=== PATIENT | male | born 1955 | race Caucasian/White ===

== ENCOUNTER 2024-07-06 08:21 | Day surgery (SDC) | payer MEDICARE, OTHER, SELFPAY ==
[2024-07-06] VITALS (7 sets, daily range): BP systolic 103–140; BP diastolic 77–84; PULSE 43–98; RESP 16; TEMP 36.2–36.5; O2SAT 95–99; BMI 24.7
--- NOTE | 2024-07-06 08:40 | PRE.ANES_ITS ---
ASA Classification* ASA Classification ASA Classification: 2 Assessment & Plan Anesthesia* Anesthesia Assessment Anesthesia Assessment: Discussed sedation and/or anesthesia options, risks, benefits, and alternatives with patient/parents/legal guardian/POA. Questions invited. The patient/parents/legal guardian/POA seems to understand and agrees to proceed with anesthesia plan. Reviewed the physical assessment, medical history, allergy history and patient home medications list prior to surgery/procedure/anesthetic and documented any changes. Performed airway and anesthesia risk assessments. 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 When Was Last Pacemaker Check QUESTION #4 FULL TEXT: You/Your Family Experience fever (hyperthermia) with Anesthesia Last Oral Intake Last Oral intake: Last Oral Intake NPO since Meds taken in AM with sips of water? Meds patient instructed to take am of surgery PONV PONV - pneumatic hoist operator: PONV - pneumatic hoist operator Female No 07/04/24 10:16 HX of Motion Sickness Yes 07/04/24 10:16 HX of N/V After Surgery No 07/04/24 10:16 Non-Smoker Yes 07/04/24 10:16 Duration of Surgery greater No 07/04/24 10:16 than 60 minutes Number of Risk Factors 2 07/04/24 10:16 PONV Score Moderate Risk 07/04/24 10:16 Height & Weight Height & Weight: Anesthesia: Height & Weight Height 5 ft 10 in 06/07/24 08:44 Respiratory Assessment Respiratory Assessment - pneumatic hoist operator: Respiratory Tract Infection Hx - pneumatic hoist operator Hx Respiratory Tract Infection No 07/04/24 10:16 STOP Sleep Apnea STOP Sleep Apnea - pneumatic hoist operator: STOP Sleep Apnea - pneumatic hoist operator Hx Hypertension No 07/04/24 10:16 Hx Sleep Apnea No 07/04/24 10:16 CPAP BIPAP Do you snore loudly (louder No 07/04/24 10:16 than talking or can be heard Do you often feel tired/ Yes 07/04/24 10:16 fatigued/ sleepy during daytime? Has anyone observed you stop No 07/04/24 10:16 breathing during sleep? STOP Results Negative 07/04/24 10:16 QUESTION #5 FULL TEXT : Do you snore loudly (louder than talking or can be heard through closed doors)? 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 Specify any problems Hx of Preganancy in last 3 N/A 07/04/24 10:16 Months Nurse Filling Out Transfusion DSCHRIBER 07/04/24 10:16 & Questions: Date: 07/04/24 07/04/24 10:16 Time: 10:17 07/04/24 10:16 Patient unable to answer at this time (ie. confused, unrespo /Reproduction History /Reproductive History - pneumatic hoist operator: /Reproductive Hx- pneumatic hoist operator Hx Now No 07/04/24 10:16 Gestational Age (in weeks): EDC: Hx Hx Para Hx Section SAB No 07/04/24 10:16 Active Medications Active Medications: Current Medications Generic Name Dose Route Start Last Admin Trade Name Freq PRN Reason Stop Dose Admin Lactated Ringer's 1,000 mls @ 15 mls/hr 07/06/24 08:45 IV .Q48H BARBARA PFSH Medical History Wears glasses Depression Arthritis Hepatitis Back pain Loss of consciousness Injury of head and neck Difficulty swallowing Non-smoker History of pain when walking History of stress test Encounter for screening for COVID-19 Home Medications ?Medication ?Instructions ?Recorded ?Last Taken ?Type loratadine 10 mg tablet 10 mg PO DAILY PRN allergy symptoms 07/04/24 Unknown History (Allerclear) Allergy/AdvReac Type Severity Reaction Status Date / Time acetaminophen (From Vicodin) AdvReac Drives me Verified 07/04/24 10:15 crazy hydrocodone (From Vicodin) AdvReac Drives me Verified 07/04/24 10:15 crazy Surgical History Hx of esophagogastroduodenoscopy Hx of knee surgery History of right hip replacement History of replacement of both shoulder joints History of total bilateral knee replacement Social History household members: spouse current occupational status: retired Smoking Status: Never smoker substance use type: does not use Review of Systems (Anesthesia) ROS Narrative System reviewed and no additional complaints, except as documented.
[2024-07-06] MEDS: Lactated Ringers 1,000 ML 15 ML IV (08:54)
--- NOTE | 2024-07-06 09:28 | HP.PCM_ITS ---
[facility] - General General Date of Admission: 07/06/24 Date of Service: 07/06/24 Chief Complaint: Screening colonoscopy [facility] Narrative YOVANA NOONAN, is a 69 M who presents today for screening colonoscopy. He has never had a colonoscopy the past. He is not having abdominal pain, cramping, diarrhea. He does not take any medicines on a daily basis. Overall is in very good health. [facility] Medical History Wears glasses Depression Arthritis Hepatitis Back pain Loss of consciousness Injury of head and neck Difficulty swallowing Non-smoker History of pain when walking History of stress test Encounter for screening for COVID-19 Home Medications ?Medication ?Instructions ?Recorded ?Last Taken ?Type loratadine 10 mg tablet 10 mg PO DAILY PRN allergy symptoms 07/04/24 07/03/24 History (Allerclear) Allergy/AdvReac Type Severity Reaction Status Date / Time hydrocodone (From Vicodin) AdvReac Drives me Verified 07/04/24 10:15 crazy Surgical History Hx of esophagogastroduodenoscopy Hx of knee surgery History of right hip replacement History of replacement of both shoulder joints History of total bilateral knee replacement Social History household members: spouse current occupational status: retired Smoking Status: Never smoker substance use type: does not use ROS Review of Systems ROS Unobtainable: other Constitutional Constitutional: Denies fatigue, fever(s), poor appetite, weight gain or weight loss ENT HEENT: Denies mouth lesions Cardiovascular Cardiovascular: Denies abdominal bloating, abdominal edema or abdominal pain Respiratory/Chest Respiratory/Chest: Denies change in mental status, change in phlegm color, chest congestion or chest tightness Gastrointestinal Gastrointestinal: Denies belching, bloating, change in bowel habits, change in stool character, chewing difficulty, coffee ground emesis, constipation, cramping, diarrhea, dyspepsia, dysphagia, early satiety, excessive flatus, fecal incontinence, heartburn, hematemesis, hematochezia, hemorrhoids, loose stools, melena, nausea, odynophagia, rectal bleeding, tenesmus, vomiting or weight changes Genitourinary Genitourinary: Denies abdominal discomfort, burning urination or itching Musculoskeletal Musculoskeletal: Reports as per HPI; Denies muscle weakness or myalgias Integumentary Integumentary: Denies jaundice Neurologic Neurologic: Denies lack of coordination or weakness Psychiatric Psychiatric: Denies confusion, depression, memory loss, mood swings, paranoia or suicidal ideation Endocrine Endocrinology: Denies systems reviewed and no addt'l complaints, except as documented Hematologic/Lymphatic Hematologic/Lymphatic: Denies anemia, easy bleeding, easy bruising or lymphadenopathy Allergic/Immunologic Allergic/Immunologic: Denies systems reviewed and no addt'l complaints, except as documented Vital Signs Vital Signs Vital Signs: 07/06/24 08:46 07/06/24 08:47 Temperature 97.3 F L Temperature Source Temporal Pulse Rate 43 L Respiratory Rate 16 Respiratory Pattern Normal Blood Pressure 140/81 H Blood Pressure Mean 100 Blood Pressure Source Monitor Blood Pressure Position Semi-Fowlers Blood Pressure Location Left Arm Pulse Ox 99 Oxygen Delivery Method Room Air Weight Weight: 172 lb 3.2 oz Body Mass Index (BMI) 24.7 Physical Exam Const alert General Appearance: cooperative Orientation / Consciousness: oriented to person HEENT hearing grossly normal bilaterally Head and Scalp: normal to inspection Face and Sinus: face symmetric Nose: external nose normal Mouth: oral and palatal mucosa normal Eyes conjunctivae normal General Eye: normal appearance of both eyes Neck full ROM General: normal visual inspection Lymph Lymphatic: no lymphadenopathy noted Chest inspection of chest normal and palpation of chest normal Chest: symmetrical chest wall rise Resp normal respiratory effort Effort and Inspection: able to speak in complete sentences Cardio regular rate GI non-distended Percussion: normal to percussion Rectal Exam: deferred Neuro Speech: speech normal Gait (Neuro): normal gait Assessment & Plan Assessment/Plan (1) Encounter for screening for malignant neoplasm of colon: PLAN: He was explained alternatives, risk, benefits including not withstanding bleeding, infection, sepsis, perforation, need for emergent surgery and . He will have an ASA of 3.
--- NOTE | 2024-07-06 09:57 | OP.CCLET_ITS ---
07/06/2024 [place] Re : Colonoscopy procedure for Brandon Adhikari Dear Vivian This procedure was performed on June. My impressions and recommendations are as follows: Impressions : - The entire examined colon is normal on direct and retroflexion views. - No specimens collected. Recommendations : - Discharge patient to home. - Resume previous diet. - Continue present medications. - Repeat colonoscopy in 10 years for screening purposes. My findings are described in the full procedure note, which is enclosed. If I can be of further assistance, please feel free to contact me at . Sincerely, Nikhil Sommers, 07/06/2024 9:56:56 AM This report has been signed electronically.
--- NOTE | 2024-07-06 09:57 | OP.COLON_ITS ---
Patient Name: Brandon Adhikari Procedure Date: 07/06/2024 9:31 AM Date of : 1955 Age: 69 Procedure: Colonoscopy Indications: Screening for colorectal malignant neoplasm Providers: Nikhil Sommers DO Referring MD: Nikhil Sommers DO Medicines: Monitored Anesthesia Care Patient Profile: This is a 69 year old male. Refer to note in patient chart for documentation of history and physical. Last Colonoscopy: none. The patient's first colonoscopy is today. Complications: No immediate complications. Procedure: Pre-Anesthesia Assessment: - Prior to the procedure, a History and Physical was performed, and patient medications and allergies were reviewed. The patient is competent. The risks and benefits of the procedure and the sedation options and risks were discussed with the patient. All questions were answered and informed consent was obtained. Patient identification and proposed procedure were verified by the physician in the pre-procedure area. Mental Status Examination: alert and oriented. Airway Examination: normal oropharyngeal airway and neck mobility. Respiratory Examination: clear to auscultation. CV Examination: normal. Prophylactic Antibiotics: The patient does not require prophylactic antibiotics. Prior Anticoagulants: The patient has taken no anticoagulant or antiplatelet agents. ASA Grade Assessment: II - A patient with mild systemic disease. After reviewing the risks and benefits, the patient was deemed in satisfactory condition to undergo the procedure. The anesthesia plan was to use monitored anesthesia care (MAC). Immediately prior to administration of medications, the patient was re-assessed for adequacy to receive sedatives. The heart rate, respiratory rate, oxygen saturations, blood pressure, adequacy of pulmonary ventilation, and response to care were monitored throughout the procedure. The physical status of the patient was re-assessed after the procedure. After I obtained informed consent, the scope was passed under direct vision. Throughout the procedure, the patient's blood pressure, pulse, and oxygen saturations were monitored continuously. The Colonoscope was introduced through the anus and advanced to the cecum, identified by appendiceal orifice and ileocecal valve. The colonoscopy was performed without difficulty. The patient tolerated the procedure well. The quality of the bowel preparation was adequate. The ileocecal valve, appendiceal orifice, and rectum were photographed. Scope In: 9:34:27 AM Scope Withdrawal Time 0 hours 7 minutes 39 seconds Scope Out: 9:46:47 AM Total Procedure Duration Time 0 hours 12 minutes 20 seconds Findings: The perianal and digital rectal examinations were normal. The entire examined colon appeared normal on direct and retroflexion views. Impression: - The entire examined colon is normal on direct and retroflexion views. - No specimens collected. Recommendation: - Discharge patient to home. - Resume previous diet. - Continue present medications. - Repeat colonoscopy in 10 years for screening purposes. Procedure Code(s): --- Professional --- G0121, Colorectal cancer screening; colonoscopy on individual not meeting criteria for high risk CPT copyright 2021 [employer]. All rights reserved. The codes documented in this report are preliminary and upon silvering applicator review may be revised to meet current compliance requirements. Nikhil Sommers DO 07/06/2024 9:56:56 AM This report has been signed electronically. Number of Addenda: 0 Note Initiated On: 07/06/2024 9:31 AM
--- NOTE | 2024-07-06 09:57 | PCM.POST.ANE ---
Anesthesia: Postop Eval I Current Vital Signs Temperature: 97.2 F Pulse Rate: 70 Blood Pressure: 108/78 Respiratory Rate: 16 Pulse Ox: 97 Oxygen Delivery Method: Room Air Assessment Airway patent: Yes Spontaneous unlabored respirations: Yes Mental status: Asleep nausea: No Vomiting: No Anesthesia Complication: No Fluid Hydration Crystalloid volume administer (ml): 700 Total IV fluid infused: 700 Progress Note Anesthesia document: Postop Eval 1 completed: Yes
--- NOTE | 2024-07-06 10:08 | PCM.POSTANE2 ---
Anesthesia Postop Eval I Sum Postop Eval Completion status Anesthesia document: Postop Eval 1 completed: Yes Anesthesia Postop Eval I Summary Anesthesia Postop Eval I Summary: Anesthesia Postop Eval I: Assessment Summary Airway patent Yes 07/06/24 09:58 [email or web address] Spontaneous unlabored Yes 07/06/24 09:58 [email or web address] respirations Mental status Asleep 07/06/24 09:58 [email or web address] nausea No 07/06/24 09:58 [email or web address] Vomiting No 07/06/24 09:58 [email or web address] Anesthesia Postop Eval I: Fluid Summary Crystalloid volume administer 700 07/06/24 09:58 [email or web address] (ml) Colloids volume administered ( ml) Blood Product volume administered (ml) Total IV fluid infused 700 07/06/24 09:58 [email or web address] Anesthesia Postop Eval I: Summary Notes Anesthesia Complication No 07/06/24 09:58 [email or web address] Anesthesia Complication Comment: Post-operative progress note Anesthesia: Postop Eval II Evaluation Mental status: Awake Pain Level: 0 nausea: No Vomiting: No
== END 2024-07-06 10:31 | disposition home or self-care (01) ==
LOC: EN 08:23 → AC 08:26
PROVIDERS: PCP Family Medicine; Referring Provider Family Medicine; Visit Provider Internal Medicine Gastroenterology
PROC: 0DJD8ZZ Inspection of Lower Intestinal Tract, Via Natural or Artificial Opening Endoscopic (ICD-10-PCS; CPT 45378; principal; 2024-07-06 09:25)
DX: Z12.11 Encounter for screening for malignant neoplasm of colon (principal)
CPT/HCPCS: G0121; J7120; J2405